=== PATIENT | female | born 1990 | race Hispanic/Latino ===

== ENCOUNTER 2021-01-31 22:18 | Emergency (ER) | payer MEDICAID, OTHER ==
[~2021-01-31] VITALS: Ht 154.9 cm; Wt 64.4 kg
[2021-01-31 22:50] VITALS: BP 117/89
[2021-01-31] MEDS ORDERED: NAPR-1174 PO (23:30)
[2021-01-31] MEDS ORDERED: HYDROCODONE/ACETAMINOPHEN 10/325 MG TAB ONE (23:45)
[2021-02-01] MEDS ORDERED: HYDROCODONE/ACETAMINOPHEN 10/325 MG TAB PO ONE
== END 2021-01-31 23:51 | disposition home or self-care (01) ==
LOC: EDH 22:18
DX: S40.011A Contusion of right shoulder, initial encounter (principal); M75.21 Bicipital tendinitis, right shoulder; W17.89XA Other fall from one level to another, initial encounter; X58.XXXA Exposure to other specified factors, initial encounter; Y93.89 Activity, other specified; Y92.89 Other specified places as the place of occurrence of the external cause; Y99.8 Other external cause status
CPT/HCPCS: 73030